=== PATIENT | female | born 1995 | race Caucasian/White ===

== ENCOUNTER 2017-12-22 21:07 | Emergency (ER) | payer SELFPAY ==
[~2017-12-22] VITALS: Ht 149.9 cm; Wt 75.9 kg
[~2017-12-22 21:07] MED LIST: BCP; BIRTH CONTROL; IBU-8800 MG PO; IMITREX 25MG TA25 MG PO; MACROBID 1100 MG/CAP PO; MIRALAX PA17 GM/Dose PO; NO HOME MEDICATIONS; NORCO 325 MG-51 TAB PO; PERCOCET 325 MG1 TA2; PRENATAL1 TA1 PO; PRENATAL1 TA2 PO; PROMETHAZINE12.5 M5 PO; SPRINTEC 35 MCG1 TAB PO; TYLENOL 325MG325 MG PO; VALTREX 50500 MG/TAB PO; ZOFRAN 4MG T4 MG/TAB PO; ZYRTEC 10MG10 MG PO
[2017-12-22 21:13] VITALS: BP 117/65; PULSE 88; TEMP 98.4
[2017-12-22 21:50] LABS: COLLECTION METHOD CLEAN CATCH
[2017-12-22 21:56] LABS: MUCOUS Present /lpf; PH 5 (5-8); URINE APPEARANCE Hazy; URINE BACTERIA Rare /hpf; URINE BILIRUBIN Negative (NEGATIVE); URINE BLOOD Negative (NEGATIVE); URINE COLOR Yellow; URINE GLUCOSE Negative (NEGATIVE); URINE KETONE Negative (NEGATIVE); URINE LEUKOCYTE ESTERASE Trace (NEGATIVE); URINE NITRATE Negative (NEGATIVE); URINE PROTEIN(semi-quant) Negative (NEGATIVE); URINE RBC 0-2 /hpf; URINE UROBILINOGEN >=4.0 mg/dL (NEGATIVE)
== END 2017-12-22 22:32 | disposition home or self-care (01) ==
LOC: COL.ER 21:07
PROVIDERS: Nurse Practitioner
DX: O26.891 Other specified pregnancy related conditions, first trimester (principal); R10.2 Pelvic and perineal pain; Z3A.00 Weeks of gestation of pregnancy not specified; Z96.22 Myringotomy tube(s) status

== ENCOUNTER 2018-02-04 21:21 | Emergency (ER) | payer MEDICAID ==
[~2018-02-04] VITALS: Ht 149.9 cm; Wt 75.9 kg
[2018-02-04 21:25] VITALS: BP 118/66; TEMP 98.2
[2018-02-04 22:43] LABS: BASO % 0.4 % (0.0-2.0); EOS # 0.1 (0.0-0.7); EOS % 1.4 % (0-4.0); GRAN # 5.1 (1.4-6.5); GRAN % 63.4 % (42.2-75.2); HEMATOCRIT 30.4 % (37.0-47.0); HEMOGLOBIN 9.8 g/dl (12.5-16.0); LYMPH # 2.2 (1.2-3.4); LYMPH % 26.9 % (20.0-51.0); MEAN CELL VOLUME 80 fl (80.0-100.0); MEAN CORPUSCULAR HEMOGLOBIN 26 pg (27.0-31.0); MEAN CORPUSCULAR HGB CONC 32 g/dl (33.0-37.0); MEAN PLATELET VOLUME 10.2 fl (7.4-10.4); MONO # 0.6 (0.1-0.6); MONO % 7.7 % (1.7-9.3); PLATELET COUNT 306 K/mm3 (130-400); RED BLOOD COUNT 3.81 M/mm3 (4.10-5.30); REDCELL DISTRIBUTION WIDTH-CV 19.3 % (11.5-14.5)
[2018-02-04 22:48] LABS: COLLECTION METHOD CLEAN CATCH
[2018-02-04] MEDS ORDERED: PRENATAL FORMU1 EAC3 PO (22:52)
[2018-02-04 22:54] LABS: MUCOUS Present /lpf; PH 5 (5-8); URINE APPEARANCE Clear; URINE BACTERIA None Seen /hpf; URINE BILIRUBIN Negative (NEGATIVE); URINE BLOOD Negative (NEGATIVE); URINE COLOR Yellow; URINE GLUCOSE Negative (NEGATIVE); URINE KETONE Trace (NEGATIVE); URINE LEUKOCYTE ESTERASE Negative (NEGATIVE); URINE NITRATE Negative (NEGATIVE); URINE PROTEIN(semi-quant) 1+ (NEGATIVE); URINE RBC 0-2 /hpf
[2018-02-04 23:01] LABS: ALANINE AMINOTRANSFERASE 22 U/L (9-52); ALKALINE PHOSPHATASE 65 U/L (50-136); ANION GAP 14 mmol/L (7-16); AST,SGOT 14 U/L (15-37); BILIRUBIN,TOTAL < 0.1 mg/dL (0.0-1.0); BLOOD UREA NITROGEN 8 mg/dL (7-17); CALCIUM 9.2 mg/dL (8.4-10.2); CARBON DIOXIDE 22 mmol/L (22-30); CHLORIDE 102 mmol/L (98-107); CREATININE, serum 0.53 mg/dL (0.52-1.25); GLUCOSE 89 mg/dL (74-106); POTASSIUM 3.3 mmol/L (3.4-5.0); SODIUM 138 mmol/L (137-145)
[2018-02-04 23:55] VITALS: PULSE 100
== END 2018-02-04 23:55 | disposition home or self-care (01) ==
LOC: COL.ER 21:21
PROVIDERS: Physician Assistant
DX: O20.8 Other hemorrhage in early pregnancy (principal); Z3A.11 11 weeks gestation of pregnancy

== ENCOUNTER 2018-07-27 12:06 | Outpatient (CLI) | payer MEDICAID ==
[~2018-07-27] VITALS: Ht 149.9 cm; Wt 74.5 kg
[~2018-07-27 12:06] MED LIST changes: +PRENATAL FORMU1 EAC3 PO
[2018-07-27 12:31] VITALS: BP 120/68; PULSE 104; TEMP 98.4
[2018-07-27] MEDS ORDERED: FERROUSGLUC256MG (12:39)
[2018-07-27 13:00] VITALS: BP 107/72; PULSE 104
== END 2018-07-27 13:20 | disposition home or self-care (01) ==
LOC: LDRO 12:06
DX: O62.9 Abnormality of forces of labor, unspecified (principal); Z3A.36 36 weeks gestation of pregnancy

== ENCOUNTER 2018-08-01 18:48 | Outpatient (CLI) | payer MEDICAID ==
[~2018-08-01] VITALS: Ht 149.9 cm; Wt 75.0 kg
[~2018-08-01 18:48] MED LIST changes: +FERROUSGLUC256MG
[2018-08-01 19:05] VITALS: BP 112/64; PULSE 100
[2018-08-01 19:50] VITALS: BP 112/64; PULSE 100; TEMP 98.9
[2018-08-01 20:10] VITALS: TEMP 98.9
[2018-08-02] MEDS ORDERED: TUMS500 MG (18:41)
== END 2018-08-01 20:42 | disposition home or self-care (01) ==
LOC: LDRO 18:48
DX: O26.893 Other specified pregnancy related conditions, third trimester (principal); R10.9 Unspecified abdominal pain; Z3A.37 37 weeks gestation of pregnancy

== ENCOUNTER 2018-08-02 18:20 | Outpatient (CLI) | payer MEDICAID ==
[~2018-08-02] VITALS: Ht 149.9 cm; Wt 74.5 kg
[2018-08-02 18:37] VITALS: BP 111/70; PULSE 102; TEMP 98.6
[2018-08-02] MEDS ORDERED: TUMS500 MG (18:41)
== END 2018-08-02 20:17 | disposition home or self-care (01) ==
LOC: LDRO 18:20
DX: Z34.93 Encounter for supervision of normal pregnancy, unspecified, third trimester (principal); Z3A.37 37 weeks gestation of pregnancy

== ENCOUNTER 2018-08-07 02:48 | Outpatient (CLI) | payer MEDICAID ==
[~2018-08-07] VITALS: Ht 149.9 cm; Wt 75.0 kg
[~2018-08-07 02:48] MED LIST changes: +TUMS500 MG
[2018-08-07 03:15] VITALS: BP 121/56; PULSE 83; TEMP 98.9
[2018-08-07 03:30] VITALS: BP 104/63; PULSE 71
[2018-08-07 03:45] VITALS: BP 103/56; PULSE 83
[2018-08-07 04:05] VITALS: BP 107/66
== END 2018-08-07 04:15 | disposition home or self-care (01) ==
LOC: LDRO 02:48
DX: O62.9 Abnormality of forces of labor, unspecified (principal); Z3A.37 37 weeks gestation of pregnancy

== ENCOUNTER 2019-05-26 11:23 | Emergency (ER) | payer MEDICAID ==
[~2019-05-26] VITALS: Ht 149.9 cm; Wt 82.6 kg
[~2019-05-26 11:23] MED LIST changes: +IBU600 MG PO
[2019-05-26 11:30] VITALS: BP 133/84; TEMP 98.5
[2019-05-26 11:50] LABS: COLLECTION METHOD CLEAN CATCH
[2019-05-26 11:58] LABS: MUCOUS Present /lpf; PH 6 (5-8); SQUAMOUS EPITHELIAL 0-2 /hpf; URINE APPEARANCE Clear; URINE BACTERIA None Seen /hpf; URINE BILIRUBIN Negative (NEGATIVE); URINE BLOOD Negative (NEGATIVE); URINE COLOR Yellow; URINE GLUCOSE Negative (NEGATIVE); URINE KETONE Negative (NEGATIVE); URINE LEUKOCYTE ESTERASE Negative (NEGATIVE); URINE NITRATE Negative (NEGATIVE); URINE PROTEIN(semi-quant) Negative (NEGATIVE); URINE RBC 0-2 /hpf; URINE UROBILINOGEN Negative (NEGATIVE)
[2019-05-26 12:06] LABS: BASO # 0.1 (0.0-0.2); BASO % 0.7 % (0.0-2.0); EOS # 0.3 (0.0-0.7); GRAN # 5.2 (1.4-6.5); GRAN % 64.3 % (42.2-75.2); HEMATOCRIT 37.7 % (37.0-47.0); HEMOGLOBIN 11.4 g/dl (12.5-16.0); LYMPH # 1.8 (1.2-3.4); LYMPH % 22.5 % (20.0-51.0); MEAN CELL VOLUME 83 fl (80.0-100.0); MEAN CORPUSCULAR HEMOGLOBIN 25 pg (27.0-31.0); MEAN CORPUSCULAR HGB CONC 30 g/dl (33.0-37.0); MEAN PLATELET VOLUME 10.4 fl (7.4-10.4); MONO # 0.7 (0.1-0.6); MONO % 8.1 % (1.7-9.3); PLATELET COUNT 412 K/mm3 (130-400); RED BLOOD COUNT 4.57 M/mm3 (4.10-5.30)
[2019-05-26 12:08] LABS: ALBUMIN 4.6 gm/dL (3.5-5.0); BILIRUBIN,TOTAL 0.2 mg/dL (0.0-1.0); C-REACTIVE PROTEIN 1.5 mg/dL (0.0-0.9); CALCIUM 9.1 mg/dL (8.4-10.2); CREATININE, serum 0.68 (0.52-1.25); POTASSIUM 4.1 mmol/L (3.4-5.0)
[2019-05-26] MEDS ORDERED: PHENERGAN 25 TA25 MG PO (12:41)
[2019-05-26 12:54] VITALS: PULSE 74
== END 2019-05-26 12:55 | disposition home or self-care (01) ==
LOC: COL.ER 11:23
PROVIDERS: Emergency Medicine
DX: R11.10 Vomiting, unspecified (principal); R19.7 Diarrhea, unspecified; Z98.51 Tubal ligation status
CPT/HCPCS: J1885; J2550; J7030

== ENCOUNTER 2019-09-19 19:17 | Emergency (ER) | payer MEDICAID ==
[~2019-09-19] VITALS: Ht 149.9 cm; Wt 84.1 kg
[~2019-09-19 19:17] MED LIST changes: +PHENERGAN 25 TA25 MG PO
[2019-09-19 19:20] VITALS: TEMP 98.7
[2019-09-19] MEDS ORDERED: AMOXICILLIN 8751 TAB PO (19:42)
[2019-09-19 20:16] VITALS: BP 134/78; PULSE 87
== END 2019-09-19 20:16 | disposition home or self-care (01) ==
LOC: COL.ER 19:17
DX: K08.89 Other specified disorders of teeth and supporting structures (principal)